=== PATIENT | female | born 1985 | race Caucasian/White ===

== ENCOUNTER 2018-10-08 10:58 | Inpatient (IN) | payer OTHER ==
--- NOTE | 2018-10-08 14:04 | PR ---
[facility] [address] [place], [place] [address] Signed Progress Notes IP Datetime Report Generated by CPJohnna: 10/08/2018 14:04 PROGRESS NOTES: [id number] Impression: Normal progression of labor; Reassuring heart rate Procedures: Artificial ROM; Sterile Vag Exam Plan: Continue present management; Anticipate Vaginal Delivery Informed Consent Obtain: Vaginal Delivery VITAL SIGNS: [id number] Vital Signs: Reviewed VS Notable Details: Repeat BP WNL EXAM: [id number] Dilatation: 5.0 Effacement: 90 Station: -2 Uterine Contractions: q 3 min MEMBRANES: [id number] Membrane Status: Ruptured Amniotic Fluid Color: Clear ROM Note: vertex well applied. Verbal consent obtained for AROM. AROM performed for moderate amount clear fluid. Comments: Pt seen and examined. Comfortable w/ epidural. FHT reassuring. AROM performed; moderate amound clear fluid. Anticipate . Fetus A: [id number] FHR Baseline: 165 Variability: Moderate 6-25bpm Accelerations: None Decelerations: Variable FHR Category: Category II Presentation: Vertex Comments on Fetus A: No evidence of metabolic acidosis Fetus B: [id number] Signing Physician: Neftali Joaquin DO Copies: ~ *Electronically Signed* 10/08/18 1404 NEFTALI JOAQUIN DO PATIENT NAME: NICHOLE WEBER PROGRESS NOTE DATE OF : 81 PHYSICIAN: NEFTALI JOAQUIN DO RPT #: [id number] REPORT IS CONFIDENTIAL AND NOT TO BE RELEASED WITHOUT AUTHORIZATION
--- NOTE | 2018-10-08 16:35 | PR ---
[facility] [address] [facility] [place], [place] [address] Signed Progress Notes IP Datetime Report Generated by CPN: 10/08/2018 16:34 PROGRESS NOTES: [id number] Impression: Normal progression of labor; Reassuring heart rate Procedures: Sterile Vag Exam Plan: Continue present management Informed Consent Obtain: Vaginal Delivery VITAL SIGNS: [id number] Vital Signs: Reviewed VS Notable Details: Tmax 100.0 EXAM: [id number] Dilatation: 7.0 Effacement: 90 Station: -2 Uterine Contractions: q 1-2 min MEMBRANES: [id number] Membrane Status: Ruptured Amniotic Fluid Color: Clear ROM Note: vertex well applied. Verbal consent obtained for AROM. AROM performed for moderate amount clear fluid. Comments: Pt seen and examined. Doing well. C/O SAMS. Reviewed BPs and last BP normal. No RUQ pain or visual changes. Reflexes normal and no clonus. caput noted on exam. Will recheck and if no cervical change noted at next check will place IUPC and consider pitocoin. Fetus A: [id number] FHR Baseline: 165 Variability: Moderate 6-25bpm Accelerations: None Decelerations: Variable FHR Category: Category II Presentation: Vertex Other Presentation: OA Comments on Fetus A: tachycardia w/ moderate variability Fetus B: [id number] Signing Physician: Neftali Joaquin DO Copies: *Electronically Signed* 10/08/18 0121 NEFTALI JOAQUIN DO PATIENT NAME: NICHOLE WEBER PROGRESS NOTE DATE OF : 81 PHYSICIAN: NEFTALI JOAQUIN DO RPT #: [id number] REPORT IS CONFIDENTIAL AND NOT TO BE RELEASED WITHOUT AUTHORIZATION [facility] [address] [place] [id number] Signed ~ *Electronically Signed* 10/08/18 1634 NEFTALI JOAQUIN DO PATIENT NAME: NICHOLE WEBER PROGRESS NOTE DATE OF : 81 PHYSICIAN: NEFTALI JOAQUIN DO RPT #: [id number] REPORT IS CONFIDENTIAL AND NOT TO BE RELEASED WITHOUT AUTHORIZATION
--- NOTE | 2018-10-08 17:07 | PR ---
[facility] [address] [place], [place] [address] Signed Progress Notes IP Datetime Report Generated by WATSON: 10/08/2018 17:07 PROGRESS NOTES: [id number] Impression: Non-reassuring heart rate Procedures: Intrauterine Pressure Catheter; Scalp Electrode; Sterile Vag Exam Plan: Continue present management Informed Consent Obtain: Vaginal Delivery; Section Delivery VITAL SIGNS: [id number] Vital Signs: Reviewed VS Notable Details: Tmax 100.0 EXAM: [id number] Dilatation: 8.0 Effacement: 100 Station: 0 Uterine Contractions: q1-3 minutes MEMBRANES: [id number] Membrane Status: Ruptured Amniotic Fluid Color: Clear ROM Note: vertex well applied. Verbal consent obtained for AROM. AROM performed for moderate amount clear fluid. Comments: Pt seen and examined. Pt w/ now recurrent late decelerations noted that improve w/ intrauterine recussitation. Difficult time tracing fetus and vertex has descended signficiantly. Discussed IUPC and FSE w/ pt and pt understands and agrees to placement. Placed without difficulty. Residual forebag noted and gush of clear fluid observed. Will continue to monitor closely. Anticipate soon, but discussed indications for or operative vaginal delivery if needed. Fetus A: [id number] FHR Baseline: Indeterminate Variability: Moderate 6-25bpm Accelerations: None Decelerations: Late; Variable FHR Category: Category II Presentation: Vertex Other Presentation: MEREDITH Comments on Fetus A: recurrent late decelerations w/ moderate variability Fetus B: [id number] Signing Physician: Neftlai Joaquin DO *Electronically Signed* 10/08/181706 NEFTALI JOAQUIN DO PATIENT NAME: NICHOLE WEBER PROGRESS NOTE DATE OF : 81 PHYSICIAN: NEFTALI JOAQUIN DO RPT #: [id number] REPORT IS CONFIDENTIAL AND NOT TO BE RELEASED WITHOUT AUTHORIZATION [facility] [address] [place] [address] Signed Copies: ~ *Electronically Signed* 10/08/181706 NEFTALI JOAQUIN DO PATIENT NAME: NICHOLE WEBER PROGRESS NOTE DATE OF : 81 PHYSICIAN: NEFTALI JOAQUIN DO RPT #: [id number] REPORT IS CONFIDENTIAL AND NOT TO BE RELEASED WITHOUT AUTHORIZATION
--- NOTE | 2018-10-08 17:43 | PR ---
[facility] [address] [place], [place] [address] Signed Progress Notes IP Datetime Report Generated by WATSON: 10/08/2018 17:43 PROGRESS NOTES: [id number] Impression: Reassuring heart rate Procedures: Intrauterine Pressure Catheter; Scalp Electrode; Sterile Vag Exam Plan: Continue present management Informed Consent Obtain: Vaginal Delivery; Section Delivery VITAL SIGNS: [id number] Vital Signs: Reviewed VS Notable Details: Tmax 100.0 EXAM: [id number] Dilatation: 8.0 Effacement: 100 Station: 0 Uterine Contractions: q1-3 minutes MEMBRANES: [id number] Membrane Status: Ruptured Amniotic Fluid Color: Clear ROM Note: vertex well applied. Verbal consent obtained for AROM. AROM performed for moderate amount clear fluid. Comments: Strip review. FHT much improved w/ IVF bolus and maternal repositioning. Continue expectant management and anticipate Fetus A: [id number] FHR Baseline: 160 Variability: Moderate 6-25bpm Accelerations: 15X15 Decelerations: Variable FHR Category: Category II Presentation: Vertex Other Presentation: MEREDITH Comments on Fetus A: No evidence of metabolic acidosis Fetus B: [id number] Signing Physician: Neftali Joaquin DO Copies: ~ *Electronically Signed* 10/08/18 1743 NEFTALI JOAQUIN DO PATIENT NAME: NICHOLE WEBER PROGRESS NOTE DATE OF : 81 PHYSICIAN: NEFTALI JOAQUIN DO RPT #: [id number] REPORT IS CONFIDENTIAL AND NOT TO BE RELEASED WITHOUT AUTHORIZATION
--- NOTE | 2018-10-08 19:29 | PR ---
[facility] [address] [place], [place] [address] Signed Progress Notes IP Datetime Report Generated by WATSON: 10/08/2018 19:29 PROGRESS NOTES: [id number] Impression: Reassuring heart rate Procedures: Sterile Vag Exam Plan: Continue present management Informed Consent Obtain: Vaginal Delivery; Section Delivery VITAL SIGNS: [id number] Vital Signs: Reviewed VS Notable Details: Elevated Temp 102.9 axillary while pt under several warm blankets EXAM: [id number] Dilatation: 9.0 Effacement: 90 Station: 0 Uterine Contractions: q2 minutes MEMBRANES: [id number] Membrane Status: Ruptured Amniotic Fluid Color: Clear ROM Note: vertex well applied. Verbal consent obtained for AROM. AROM performed for moderate amount clear fluid. Comments: Pt seen and examined. More comfortable after epidural bolus by anesthesia. Pt c/o feeling cold w/ shivering. Pt was given warm blankets, and axillary temp shows elevated temp 102.9 w/ blankets in place. Temporal reading was 100.3. Subjectively afebrile on SVE. Pt does have maternal and tachycardia. Will continue to monitor, and will treat for chorioamnionitis if needed. Overall tracing reassuring despite intermittent late and variable decelerations. Reviewed w/ pt. Pt also C/O SAMS. Again, BPs normal. Will treat with fioricet x 1 tab. Fetus A: [id number] FHR Baseline: 160 Variability: Moderate 6-25bpm Accelerations: 15X15 Decelerations: Late; Variable FHR Category: Category II Presentation: Vertex Other Presentation: MEREDITH Comments on Fetus A: Reassuring w/ moderate variability _ accel w/ scalp stim Fetus B: [id number] Signing Physician: Neftali Joaquin DO *Electronically Signed* 10/08/181928 NEFTALI JOAQUIN DO PATIENT NAME: NICHOLE WEBER PROGRESS NOTE DATE OF : 81 PHYSICIAN: NEFTALI JOAQUIN DO RPT #: [id number] REPORT IS CONFIDENTIAL AND NOT TO BE RELEASED WITHOUT AUTHORIZATION [address] [place] [address] Signed Copies: ~ *Electronically Signed* 10/08/181928 NEFTALI JOAQUIN DO PATIENT NAME: NICHOLE WEBER PROGRESS NOTE DATE OF : 81 PHYSICIAN: NEFTALI JOAQUIN DO RPT #: [id number] REPORT IS CONFIDENTIAL AND NOT TO BE RELEASED WITHOUT AUTHORIZATION
--- NOTE | 2018-10-08 20:00 | PR ---
[facility] [address] [place], [place] [address] Signed Progress Notes IP Datetime Report Generated by CPN: 10/08/2018 19:59 PROGRESS NOTES: [id number] Impression: Reassuring heart rate Procedures: Sterile Vag Exam Plan: Continue present management; Anticipate Vaginal Delivery Informed Consent Obtain: Vaginal Delivery VITAL SIGNS: [id number] Vital Signs: Reviewed VS Notable Details: Maternal tachycardia EXAM: [id number] Dilatation: 9.5 Effacement: 100 Station: 0 Uterine Contractions: q 1-2 minutes MEMBRANES: [id number] Membrane Status: Ruptured Amniotic Fluid Color: Clear ROM Note: vertex well applied. Verbal consent obtained for AROM. AROM performed for moderate amount clear fluid. Comments: Pt seen and examined. Feeling more pressure. SAMS continues but slightly improved w/ fioricet. Late and variabile deceles noted, but reassurance w/ mod amandeep and accel w/ scalp stim. Cervix w/ posterior lip. Will place in high fowlers. Continue to monitor. Fetus A: [id number] FHR Baseline: 160 Variability: Moderate 6-25bpm Accelerations: 15X15 Decelerations: Late; Variable FHR Category: Category II Presentation: Vertex Other Presentation: HARI Comments on Fetus A: Reassurance w/ moderate variability and accel w/ scalp stimuation Fetus B: [id number] Signing Physician: Neftali Joaquin DO Copies: *Electronically Signed* 10/08/181958 NEFTALI JOAQUIN DO PATIENT NAME: NICHOLE WEBER PROGRESS NOTE DATE OF : 81 PHYSICIAN: NEFTALI JOAQUIN DO RPT #: [id number] REPORT IS CONFIDENTIAL AND NOT TO BE RELEASED WITHOUT AUTHORIZATION [facility] [address] [place] [address] [place] [address] Signed ~ *Electronically Signed* 10/08/181958 NEFTALI JOAQUIN DO PATIENT NAME: NICHOLE WEBER PROGRESS NOTE DATE OF : 81 PHYSICIAN: NEFTALI JOAQUIN DO RPT #: [id number] REPORT IS CONFIDENTIAL AND NOT TO BE RELEASED WITHOUT AUTHORIZATION
--- NOTE | 2018-10-08 20:39 | PR ---
[facility] [address] [place], [place] [address] Signed Progress Notes IP Datetime Report Generated by WATSON: 10/08/2018 20:39 PROGRESS NOTES: [id number] Impression: Reassuring heart rate Procedures: Scalp Electrode; Sterile Vag Exam Plan: Continue present management; Antibiotic therapy Informed Consent Obtain: Vaginal Delivery Other Informed Consents: Chorioamnionitis abx therapy VITAL SIGNS: [id number] Vital Signs: Reviewed VS Notable Details: Maternal tachycardia EXAM: [id number] Dilatation: 9.5 Effacement: 100 Station: 0 Uterine Contractions: q 2 minutes MEMBRANES: [id number] Membrane Status: Ruptured Amniotic Fluid Color: Clear ROM Note: vertex well applied. Verbal consent obtained for AROM. AROM performed for moderate amount clear fluid. Comments: Pt seen and examined. Last temp 101.3. Given temp and tachycardia, presumtive dx of chorioamnionitis (IAI). Pt w/ hx of allergies to sulfa and keflex (hives). Pt reports taking penicillin and amoxicillin in the past without difficulty. Will start amp/gent. FSE developed significant artifact and another FSE placed without difficulty. Fetus A: [id number] FHR Baseline: 165 Variability: Moderate 6-25bpm Accelerations: None Decelerations: None FHR Category: Category II Presentation: Vertex Other Presentation: HARI Comments on Fetus A: Reassuring moderate variability Fetus B: [id number] Signing Physician: Neftali Joaquin DO *Electronically Signed* 10/08/182038 NEFTALI JOAQUIN DO PATIENT NAME: NICHOLE WEBER PROGRESS NOTE DATE OF : 81 PHYSICIAN: NEFTALI JOAQUIN DO RPT #: [id number] REPORT IS CONFIDENTIAL AND NOT TO BE RELEASED WITHOUT AUTHORIZATION [facility] [address] [place] [address] Signed Copies: ~ *Electronically Signed* 10/08/18 2039 NEFTALI JOAQUIN DO PATIENT NAME: NICHOLE WEBER PROGRESS NOTE DATE OF : 81 PHYSICIAN: NEFTALI JOAQUIN DO RPT #: [id number] REPORT IS CONFIDENTIAL AND NOT TO BE RELEASED WITHOUT AUTHORIZATION
--- NOTE | 2018-10-09 11:20 | PR ---
[facility] [address] [facility] [place] [address] Signed PP Progress Notes Datetime Report Generated by CPN: 10/09/2018 11:20 SUBJECTIVE: [id number] Pain: Within normal limits Nausea/Vomiting: Denies Vital Signs: [id number] Vital Signs: Reviewed; Within Normal Limits EXAM: [id number] Abdomen/Uterus: Normal Lochia: Normal Extremities: Normal IMPRESSION/PLAN/PROCEDURES: R1705549 Impression: Normal progression Plan: Continue present management Procedures: None Progress Notes: Doing well, without complaint. Afebrile since delivery. Will continue monitoring temp. Signing Physician: Tommy Voss MD Copies: ~ *Electronically Signed* 10/09/18 1120 TOMMY VOSS MD PATIENT NAME: NICHOLE WEBER PROGRESS NOTE DATE OF : 81 PHYSICIAN: TOMMY VOSS MD RPT #: [id number] REPORT IS CONFIDENTIAL AND NOT TO BE RELEASED WITHOUT AUTHORIZATION
--- NOTE | 2018-10-10 13:10 | PR ---
[facility] [address] [facility] [place] [address] Signed PP Progress Notes Datetime Report Generated by CPN: 10/10/2018 13:10 SUBJECTIVE: [id number] Pain: Within normal limits Nausea/Vomiting: Denies Vital Signs: C3717086 Vital Signs: Reviewed; Within Normal Limits Notable Details: PP Hgb/Hct = 9.9/30.0 EXAM: [id number] Abdomen/Uterus: Normal Lochia: Normal Extremities: Normal IMPRESSION/PLAN/PROCEDURES: Q4003620 Impression: Normal progression Plan: Discharge Procedures: None Progress Notes: Doing well, without complaint. Ready to go home Signing Physician: Tommy Voss MD Copies: ~ *Electronically Signed* 10/10/18 1310 TOMMY VOSS MD PATIENT NAME: NICHOLE WEBER PROGRESS NOTE DATE OF : 81 PHYSICIAN: TOMMY VOSS MD RPT #: [id number] REPORT IS CONFIDENTIAL AND NOT TO BE RELEASED WITHOUT AUTHORIZATION
== END 2018-10-10 14:30 | disposition home or self-care (01) | DRG 807 ==
LOC: FBCO 10:58 → FBC 11:20
PROVIDERS: ADMIT Obstetrics & Gynecology
PROC: 10E0XZZ Delivery of Products of Conception, External Approach (ICD-10-PCS; principal; 2018-10-08)
PROC: 0KQM0ZZ Repair Perineum Muscle, Open Approach (ICD-10-PCS; 2018-10-08)
PROC: 10907ZC Drainage of Amniotic Fluid, Therapeutic from Products of Conception, Via Natural or Artificial Opening (ICD-10-PCS; 2018-10-08)
PROC: 10H07YZ Insertion of Other Device into Products of Conception, Via Natural or Artificial Opening (ICD-10-PCS; 2018-10-08)
PROC: 00HU33Z Insertion of Infusion Device into Spinal Canal, Percutaneous Approach (ICD-10-PCS; 2018-10-08)
PROC: 3E0R3BZ Introduction of Anesthetic Agent into Spinal Canal, Percutaneous Approach (ICD-10-PCS; 2018-10-08)
DX: O41.1230 Chorioamnionitis, third trimester, not applicable or unspecified (principal); Z37.0 Single live birth; Z3A.39 39 weeks gestation of pregnancy; O76 Abnormality in fetal heart rate and rhythm complicating labor and delivery; O70.1 Second degree perineal laceration during delivery; O99.89 Other specified diseases and conditions complicating pregnancy, childbirth and the puerperium; R12 Heartburn; Z87.891 Personal history of nicotine dependence; Z79.899 Other long term (current) drug therapy; Z88.1 Allergy status to other antibiotic agents; Z88.2 Allergy status to sulfonamides
CPT/HCPCS: 36415; 82803; 85027; J0290; J1580; J2590; J7120

== ENCOUNTER 2020-12-28 06:15 | Inpatient (IN) | payer BC ==
[~2020-12-28] VITALS: Ht 172.7 cm; Wt 90.3 kg
--- NOTE | 2020-12-28 12:45 | PR ---
[facility] [address] [place], [place] [address] Signed Progress Notes IP Datetime Report Generated by CPJohnna: 12/28/2020 12:45 PROGRESS NOTES: [id number] Impression: Normal Progression of Labor; Reassuring Heart Rate Procedures: Intrauterine Pressure Catheter; Sterile Vag Exam Plan: Augmentation Informed Consent Obtain: Vaginal Delivery VITAL SIGNS: [id number] Vital Signs: Reviewed; Within Normal Limits VS Notable Details: slightly elevated BP. Will check prior to d/c and f/u tomorrow for BP check EXAM: [id number] Dilatation: 5.0 Effacement: 50 Station: -3 Contractions: Irregular mild MEMBRANES: [id number] Comments: Pt seen and examined. Doing well. Comfortable w/ epidural. Discussed no significant cervical change and soft cervix. Recommended IUPC which was placed w/out difficulty. If CTXs inadequate as I suspect, would recommend augmentation. Pt understands and agrees FETUS A: [id number] FHR Baseline: 145 Variability: Moderate 6-25bpm Accelerations: 15X15 Decelerations: None FHR Category: Category I Presentation: Vertex Comments on Fetus A: No evidence of metabolic acidosis FETUS B: [id number] Signing Physician: Neftali Joaquin DO Copies: ~ *Electronically Signed* 12/28/20 1245 NEFTALI JOAQUIN DO PATIENT NAME: NICHOLE WEBER PROGRESS NOTE DATE OF : 81 PHYSICIAN: NEFTALI JOAQUIN DO [facility] #: [id number] REPORT IS CONFIDENTIAL AND NOT TO BE RELEASED WITHOUT AUTHORIZATION
--- NOTE | 2020-12-28 15:16 | PR ---
[facility] [address] [place], [place] [address] Signed Progress Notes IP Datetime Report Generated by CPN: 12/28/2020 15:16 PROGRESS NOTES: [id number] Impression: Normal Progression of Labor; Reassuring Heart Rate Procedures: Sterile Vag Exam Other Procedures: Remove IUPC Plan: Continue Present Management Informed Consent Obtain: Vaginal Delivery VITAL SIGNS: [id number] Vital Signs: Reviewed; Within Normal Limits VS Notable Details: slightly elevated BP. Will check prior to d/c and f/u tomorrow for BP check EXAM: [id number] Dilatation: 7.0 Effacement: 80 Station: -2 Contractions: Irregular mild MEMBRANES: [id number] Comments: Pt seen and examined. Doing well. Comfortable w/ contractions. Cervix soft and strechy with contractions. Anticipate soon. Reviewed normal glucose. Discussed anticipated course of labor/delivery. All questions answered FETUS A: [id number] FHR Baseline: 145 Variability: Moderate 6-25bpm Accelerations: 15X15 Decelerations: None FHR Category: Category I Presentation: Vertex Comments on Fetus A: No evidence of metabolic acidosis FETUS B: [id number] Signing Physician: Neftali Joaquin DO Copies: ~ *Electronically Signed* 12/28/20 1516 NEFTALI JOAQUIN DO PATIENT NAME: NICHOEL WEBER PROGRESS NOTE DATE OF : 81 PHYSICIAN: NEFTALI JOAQUIN DO RPT #: [id number] REPORT IS CONFIDENTIAL AND NOT TO BE RELEASED WITHOUT AUTHORIZATION
--- NOTE | 2020-12-29 10:32 | PR ---
[facility] [address] [facility] [place], [place] [address] Signed PP Progress Notes Datetime Report Generated by CPN: 12/29/2020 10:32 SUBJECTIVE: [id number] Pain: Within Normal Limits Nausea/Vomiting: Denies Flatus: Yes Bowel Movement: Yes Vital Signs: M0937684 Vital Signs: Reviewed Notable Details: last systolic bp 142. Will monitor Cardiovascular: Normal Respiratory: Normal Abdomen/Uterus: Normal Lochia: Normal CVA Tenderness: Normal Extremities: Normal Incision: Not Applicable Progress: Normal Exam Comments: Fundus firm U-2 nontender IMPRESSION/PLAN/PROCEDURES: [id number] Impression: Normal Progression Plan: Discharge Progress Notes: Pt seen and examined. Doing well. Ambulating, voiding, and tolerating full diet. Pain and lochia minimal. well. No questions or concerns. Desires d/c home today. Planning Mirena IUD. Reviewed discharge instructions in detail. Signing Physician: Neftali Joaquin DO Copies: ~ *Electronically Signed* 12/29/20 1032 NEFTALI JOAQUIN DO PATIENT NAME: NICHOLE WEBER BRIGID PROGRESS NOTE DATE OF : 81 PHYSICIAN: NEFTALI JOAQUIN DO RPT #: [id number] REPORT IS CONFIDENTIAL AND NOT TO BE RELEASED WITHOUT AUTHORIZATION
== END 2020-12-29 18:24 | disposition home or self-care (01) | DRG 807 ==
LOC: FBC 06:15
PROVIDERS: ADMIT Obstetrics & Gynecology; ATTEND Obstetrics & Gynecology
PROC: 10E0XZZ Delivery of Products of Conception, External Approach (ICD-10-PCS; principal; 2020-12-28)
PROC: 10H07YZ Insertion of Other Device into Products of Conception, Via Natural or Artificial Opening (ICD-10-PCS; 2020-12-28)
PROC: 10907ZC Drainage of Amniotic Fluid, Therapeutic from Products of Conception, Via Natural or Artificial Opening (ICD-10-PCS; 2020-12-28)
PROC: 00HU33Z Insertion of Infusion Device into Spinal Canal, Percutaneous Approach (ICD-10-PCS; 2020-12-28)
PROC: 3E0R3BZ Introduction of Anesthetic Agent into Spinal Canal, Percutaneous Approach (ICD-10-PCS; 2020-12-28)
DX: O24.420 Gestational diabetes mellitus in childbirth, diet controlled (principal); Z37.0 Single live birth; O76 Abnormality in fetal heart rate and rhythm complicating labor and delivery; Z87.891 Personal history of nicotine dependence; Z88.2 Allergy status to sulfonamides; Z67.10 Type A blood, Rh positive; Z3A.39 39 weeks gestation of pregnancy
CPT/HCPCS: 01960; 85027; A9270; J2590; J2795; J3010

== ENCOUNTER 2024-02-22 09:10 | Emergency (ER) | payer BC ==
[~2024-02-22] VITALS: Ht 182.9 cm; Wt 86.9 kg
[2024-02-22 09:25] LABS: BILIRUBIN, URINE NEGATIVE (negative); BLOOD/HGB, URINE SMALL (Negative); KETONE, URINE NEGATIVE (Negative); LEUK ESTERASE, URINE TRACE (negative); NITRITE, URINE NEGATIVE (negative)
[2024-02-22] MEDS ORDERED: MIRENA1 EAC3 XX (09:26)
[2024-02-22 09:29] LABS: EPITHELIAL CELLS, URINE SQUAMOUS 4+ /lpf (0-1+)
[2024-02-22 09:30] LABS: BACTERIA, URINE 1+ /hpf (negative); CASTS, URINE NONE SEEN \\lpf; COLLECTION TYPE, URINE CLEAN CATCH; CRYSTALS, URINE NONE SEEN (0-1+); REFLEX CULTURE, URINE No (No)
[2024-02-22] MEDS ORDERED: SODIUM CHLORIDE 0.9% 1,000 ML IV PRN (09:30)
[2024-02-22] MEDS ORDERED: ondansetron HCL 4 MG/2 ML VIAL IV ONE (09:30)
[2024-02-22] MEDS ORDERED: KETOROLAC TROMETHAMINE 15 MG/ML VIAL IV ONE (09:30)
[2024-02-22 09:35] LABS: BASOPHILS 0.6 % (0-2); EOSINOPHILS 0.7 % (0-6); HEMATOCRIT 44.5 % (35.0-50.0); HEMOGLOBIN 15.1 g/dL (12.0-18.0); LYMPHOCYTES 23.3 % (24-44); MCH 30.6 (27-36); MCHC 33.9 g/dl (30-36); MCV 90.1 fl (81-99); MONOCYTES 7.8 % (0-12); NEUTROPHILS 67.6 % (39-80); PLATELET COUNT 238 K/uL (140-440); RBC 4.94 M/ul (4.3-5.7); RDW 13.3 (10.5-15.0)
[2024-02-22 09:52] LABS: ALBUMIN 4.6 g/dL (3.4-5.0); ALBUMIN/GLOBULIN RATIO 1.21 (1.1-2.4); ANION GAP 14.2 (7-21); BILIRUBIN, TOTAL 1.1 ng/dL (0.2-1.0); BUN/CREATININE RATIO 8.33 (6.0-28.6); CREATININE, SERUM 0.96 mg/dL (0.55-1.02); POTASSIUM 3.2 mmol/L (3.5-5.1); PROTEIN, TOTAL 8.4 g/dL (6.4-8.2)
[2024-02-22] MEDS ORDERED: ONDANSETRON ODT4 MG PO (10:39)
[2024-02-22] MEDS ORDERED: NAPROSYN500 MG PO (10:39)
[2024-02-22] MEDS ORDERED: CEFIXIME400 MG PO (10:39)
[2024-02-22] MEDS ORDERED: diphenhydrAMINE HCL 50 MG/ML VIAL IV ONE (10:45)
[2024-02-22] MEDS ORDERED: CEFTRIAXONE/SODIUM CHLORIDE 2 GM/100 ML PIGGYBACK IV ONE (10:45)
[2024-02-22 11:05] LABS: BILIRUBIN, URINE NEGATIVE (negative); BLOOD/HGB, URINE TRACE-I (Negative); KETONE, URINE NEGATIVE (Negative); LEUK ESTERASE, URINE NEGATIVE (negative); NITRITE, URINE NEGATIVE (negative); PH, URINE 5.5 (5-7)
[2024-02-22 11:09] LABS: BACTERIA, URINE NONE SEEN /hpf (negative); CASTS, URINE NONE SEEN \\lpf; COLLECTION TYPE, URINE CLEAN CATCH; CRYSTALS, URINE NONE SEEN (0-1+); EPITHELIAL CELLS, URINE SQUAMOUS 1+ /lpf (0-1+); RED BLOOD CELLS, URINE 0-1 /hpf (0-5); REFLEX CULTURE, URINE No (No); WHITE BLOOD CELLS, URINE 0-1 /HPF (0-5)
[2024-02-22 11:10] LABS: N. GONORRRHOEAE BY PCR NOT DETECTED (NOT DETECT)
[2024-02-22 16:32] VITALS: BP 131/78
[2024-02-22] MEDS ORDERED: ONDANSETRON 4 MG HOME.PACK SL ONE (19:30)
== END 2024-02-22 16:34 | disposition home or self-care (01) ==
LOC: ED 09:10
PROVIDERS: Emergency Medicine
DX: M54.50 Low back pain, unspecified (principal); Z88.2 Allergy status to sulfonamides; Z88.1 Allergy status to other antibiotic agents; Z79.899 Other long term (current) drug therapy
CPT/HCPCS: 36415; 74176; 80053; 81001; 84703; 85025; 87088; 87491; 96365; 96375; 99284-25; J0696; J1200; J1885; J2405; J7030